=== PATIENT | female | born 1975 | race Caucasian/White ===

== ENCOUNTER 2022-05-11 16:08 | Emergency (ER) | payer OTHER ==
--- NOTE | 2022-05-11 16:30 | EDPHYS ---
Physician Documentation [facility] Name: Carlotta Arellano Age: 46 yrs Sex: Female : 1975 Arrival Date: 05/11/2022 Time: 16:10 Bed 8 Private MD: ED Physician Hugo Mead HPI: 05/11 16:18 This 46 yrs old Female presents to ER via Ambulatory with complaints of Leg Swelling. kb 16:18 The patient presents with cellulitis of the right moss. Description: erythematous, kb swollen. Onset: The symptoms/episode began/occurred 3 month(s) ago. Possible cause(s): unknown. Associated signs and symptoms: Pertinent positives: erythema, swelling. Associated signs and symptoms: Pertinent negatives: fever. Modifying factors: the symptoms are alleviated by nothing, the symptoms are aggravated by nothing. Severity of symptoms: At their worst the symptoms were mild, moderate, in the emergency department the symptoms are unchanged. The patient has not experienced similar symptoms in the past. The patient has not recently seen a physician. Mother states pt has had redness and swelling to right lower extremity since February. States she was recently told it could be cellulitis so she brought her in to get it looked at. States pt is afraid of doctors so it took a while to convince her to come in. . Historical: - Allergies: 16:10 No Known Allergies; aa5 - Home Meds: 16:10 None [Active]; aa5 - PMHx: 16:10 Shingles; Mental Delay; Deaf; aa5 - PSHx: 16:10 Cochlear implant; aa5 - Immunization history:: Adult Immunizations unknown. - Social history:: Smoking status: Patient denies any tobacco usage or history of. ROS: 16:17 Constitutional: Negative for fever, chills, and weight loss. kb 16:17 MS/extremity: Positive for pain, swelling, of the right moss. 16:17 All other systems are negative. Exam: 16:17 Constitutional: This is a well developed, well nourished patient who is awake, alert, kb and in no acute distress. Head/Face: Normocephalic, atraumatic. ENT: Moist Mucous membranes Cardiovascular: Regular rate and rhythm with a normal S1 and S2. No gallops, murmurs, or rubs. No pulse deficits. Respiratory: Respirations even and unlabored. No increased work of breathing. Talking in full sentences MS/ Extremity: Pulses equal, no cyanosis. Neurovascular intact. Full, normal range of motion. Neuro: Awake and alert, GCS 15, oriented to person, place, time, and situation. Moves all extremities. Normal gait. Psych: Awake, alert, with orientation to person, place and time. Behavior, mood, and affect are within normal limits. 16:17 Skin: cellulitis, that is mild, on the right moss, consistent with impetigo, on the right moss. Vital Signs: 16:10 BP 190 / 98; Pulse 98; Resp 18 S; Temp 99.9(A); Pulse Ox 98% on R/A; Weight 127.01 kg aa5 (R); Height 5 ft. 6 in. (167.64 cm) (R); 16:10 Body Mass Index 45.19 (127.01 kg, 167.64 cm) aa5 MDM: 16:14 Patient medically screened. kb 16:16 Data reviewed: vital signs, nurses notes. Data interpreted: Pulse oximetry: on room air kb is 99 %. Interpretation: normal. Counseling: I had a detailed discussion with the patient and/or guardian regarding: the historical points, exam findings, and any diagnostic results supporting the discharge/admit diagnosis, the need for outpatient follow up, a family practitioner, to return to the emergency department if symptoms worsen or persist or if there are any questions or concerns that arise at home. ED course: Discussed testing labs, but mother elects to try outpatient antibiotics first. States she promised pt she wouldn't get a shot and it would be very traumatic for the pt if we tried to get bloodwork. Educated on return precautions. Verbal understanding received. . Administered Medications: No medications were administered Disposition: 18:02 PA/TEST ENGINE EVALUATOR's history reviewed, patient interviewed, and examined. I agree with assessment jr11 and care plan and confirm the diagnosis (es) above. Attestation: The patient's history, exam findings, diagnostics, and a summary of any interventions or procedures was reviewed in detail with Jennifer LICONA. Disposition Summary: 05/11/22 16:29 Discharge Ordered Location: Home kb Condition: Stable kb Diagnosis - Cellulitis of right lower limb kb - Impetigo kb Followup: kb - With: Emergency Department - When: As needed - Reason: Worsening of condition Followup: kb - With: Private Physician - When: 2 - 3 days - Reason: Recheck today's complaints, Continuance of care, Re-evaluation by your physician Discharge Instructions: - Discharge Summary Sheet kb - Cellulitis, Adult, [id number] kb - Impetigo, Adult kb Forms: - Medication Reconciliation Form kb - Thank You Letter kb - Antibiotic Education kb - Prescription Opioid Use kb Prescriptions: - mupirocin 2 % Topical ointment - apply 1 application by TOPICAL route 3 times per day; 1 tube; Refills: 0, kb Product Selection Permitted - Cephalexin 500 mg Oral Capsule - take 1 capsule by ORAL route every 8 hours for 10 days; 30 capsule; Refills: 0, kb Product Selection Permitted Signatures: Jennifer Orosco FNP-C FNP-Ckb Calderon, Audri RN RN aa5 Hugo Mead MD MD jr11
--- NOTE | 2022-05-11 16:30 | ER ---
Nurse's Notes [facility] Name: Carlotta Arellano Age: 46 yrs Sex: Female : 1975 Arrival Date: 05/11/2022 Time: 16:10 Bed 8 Private MD: Diagnosis: Cellulitis of right lower limb;Impetigo Presentation: 05/11 16:10 Chief complaint: Pt's mother reports sandra leg redness since February, worse to Right aa5 leg. Denies fever. 16:10 Coronavirus screen: At this time, the client does not indicate any symptoms associated aa5 with coronavirus-19. Ebola Screen: Patient denies travel to an Ebola-affected area in the 21 days before illness onset. Initial Sepsis Screen: Does the patient meet any 2 criteria? HR > 90 bpm. Does the patient have a suspected source of infection? Yes:. Risk Assessment: Do you want to hurt yourself or someone else? Unable to obtain Other: Pt does not understand, pt is mentally delayed. Onset of symptoms was February 2022. 16:10 Acuity: SACHIN 3 aa5 16:10 Method Of Arrival: Ambulatory aa5 Historical: - Allergies: 16:10 No Known Allergies; aa5 - Home Meds: 16:10 None [Active]; aa5 - PMHx: 16:10 Shingles; Mental Delay; Deaf; aa5 - PSHx: 16:10 Cochlear implant; aa5 - Immunization history:: Adult Immunizations unknown. - Social history:: Smoking status: Patient denies any tobacco usage or history of. Screenin:10 Abuse screen: No signs of abuse noted. Nutritional screening: No deficits noted. aa5 Tuberculosis screening: No symptoms or risk factors identified. Fall Risk No fall in past 12 months (0 pts). Secondary diagnosis (15 points) Mental Delay. No IV (0 pts). Ambulatory Aid- None/Bed Rest/Nurse Assist (0 pts). Gait- Normal/Bed Rest/Wheelchair (0 pts) Mental Status- Overestimates/Forgets Limitations (15 pts.). Total Louie Fall Scale indicates Low Risk Score (25-44 pts). Fall prevention measures have been instituted. Side Rails Up X 2 Placed close to Nursing Station. Assessment: 16:10 General: Appears comfortable, Behavior is calm, cooperative, Fears pain. Pain: aa5 Complains of pain in right leg Unable to use pain scale. Does not appear to understand pain scale. FLACC scale score is 0 out of 10. Neuro: Level of Consciousness is awake, obeys commands. Cardiovascular: Heart tones S1 S2 present Rhythm is regular. Respiratory: Airway is patent Respiratory effort is even, unlabored, Respiratory pattern is regular, symmetrical. GI: Abdomen is obese, Bowel sounds present X 4 quads. Abd is soft X 4 quads. : No signs and/or symptoms were reported regarding the genitourinary system. EENT: Parent/caregiver reports the patient having Pt's mother states "she is completely deaf". Derm: Skin is pink, warm \\T\\ dry. Redness noted to right lower leg that is circumferential with large dry yellowish skin patches noted to right moss and right calf, no drainage noted at this time. No redness noted to left leg at this time. Musculoskeletal: Range of motion: intact in all extremities. 16:35 Neuro: Level of Consciousness is awake, obeys commands. Respiratory: Airway is patent aa5 Respiratory effort is even, unlabored, Respiratory pattern is regular, symmetrical. Derm: Skin is pink, warm \\T\\ dry. Vital Signs: 16:10 BP 190 / 98; Pulse 98; Resp 18 S; Temp 99.9(A); Pulse Ox 98% on R/A; Weight 127.01 kg aa5 (R); Height 5 ft. 6 in. (167.64 cm) (R); 16:10 Body Mass Index 45.19 (127.01 kg, 167.64 cm) aa5 ED Course: 16:10 Patient arrived in ED. bd 16:10 Arm band placed on Patient placed in an exam room, on a stretcher. aa5 16:10 Patient has correct armband on for positive identification. Adult w/ patient. aa5 16:11 Hugo Mead MD is Attending Physician. jr11 16:14 Jennifer Orocso FNP-C is [facility]. kb 16:16 Kirstie Vasquez, RN is Primary Nurse. aa5 16:19 Triage completed. aa5 16:35 No provider procedures requiring assistance completed. Patient did not have IV access aa5 during this emergency room visit. Administered Medications: No medications were administered Medication: 16:35 VIS not applicable for this client. aa5 Outcome: 16:29 Discharge ordered by MD. jackson 16:35 Discharged to home ambulatory, with mother aa5 16:35 Condition: stable 16:35 Discharge instructions given to Pt's mother Instructed on discharge instructions, follow up and referral plans. medication usage, Demonstrated understanding of instructions, follow-up care, medications, Prescriptions given X 2. 16:39 Patient left the ED. ld1 Signatures: Jennifer Orosco, RITCHIE-C JAVASCRIPT DEVELOPER-Joleen Reynolds Audri, RN RN aa5 Lizeth Florian RN RN ld1 Hugo Mead MD MD jr11 Corrections: (The following items were deleted from the chart) 16:31 16:10 General: Appears comfortable, Behavior is calm, cooperative, aa5 aa5
[2022-05-11 16:45] VITALS: BP 190/98; TEMP 99.9; O2SAT 98
== END 2022-05-11 16:39 | disposition home or self-care (01) ==
LOC: ER 16:08
DX: L03.115 Cellulitis of right lower limb (principal); L01.00 Impetigo, unspecified
CPT/HCPCS: 99282

== ENCOUNTER 2024-11-03 13:43 | Emergency (ER) | payer OTHER ==
--- NOTE | 2024-11-03 14:57 | RAD REPORT ---
EXAM: Hand Left 3 View HISTORY: PAIN COMPARISON: None FINDINGS: Bones: No acute fracture identified. 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 Alignment:No significant malalignment. Degenerative changes:None significant. Other: n/a IMPRESSION: No acute osseous abnormality involving the imaged hand.
--- NOTE | 2024-11-03 14:57 | RAD REPORT ---
EXAMINATION: Wrist Left 3 View VIEWS: Three views CLINICAL INDICATION: Female, 49 years old. Pain;Swelling COMPARISON: No prior exam. IMPRESSION: No acute fracture. No malalignment or dislocation. No significant focal degenerative changes. No radiopaque foreign body.
[2024-11-03] MEDS ORDERED: IBUPROFEN 400 MG TAB ONE (15:50)
--- NOTE | 2024-11-03 16:01 | ER ---
Nurse's Notes [facility] Name: Carlotta Arellano Age: 49 yrs Sex: Female : 1975 Arrival Date: 11/03/2024 Time: 13:43 Bed IW1 Private MD: Diagnosis: Other specified sprain of left wrist Presentation: 11/03 14:14 Chief complaint: Parent and/or Guardian states: patient started favoring her left hand me1 sometime this morning. Earlier today patient leaned forward in a chair and hollered out but it is unsure how she injured it. Coronavirus screen: Vaccine status: Patient reports being unvaccinated. Ebola Screen: No symptoms or risks identified at this time. Initial Sepsis Screen: Does the patient meet any 2 criteria? HR > 90 bpm. Does the patient have a suspected source of infection? No. Patient's initial sepsis screen is negative. Risk Assessment: Do you want to hurt yourself or someone else? Patient reports no desire to harm self or others. Onset of symptoms was November 03, 2024 at 10:00. 14:14 Method Of Arrival: Ambulatory [facility] [place] 14:14 Acuity: SACHIN 4 me1 Triage Assessment: 14:16 General: Appears uncomfortable, Behavior is cooperative, appropriate for age, anxious. me1 Pain: Complains of pain in left hand and left wrist Pain does not radiate. Pain currently is 6 out of 10 on a pain scale. Quality of pain is described as aching, Pain began suddenly, Is continuous. EENT: No signs and/or symptoms were reported regarding the EENT system. Neuro: Level of Consciousness is awake, alert, obeys commands, Oriented to person, place, time, situation, Appropriate for age. Cardiovascular: Patient's skin is warm and dry. Respiratory: Airway is patent Respiratory effort is even, unlabored, Respiratory pattern is regular, symmetrical. GI: No signs and/or symptoms were reported involving the gastrointestinal system. : No signs and/or symptoms were reported regarding the genitourinary system. Derm: Skin is intact, is healthy with good turgor, Skin is pink, warm \T\ dry. Musculoskeletal: Reports pain in left hand and left wrist. 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 - Infectious Disease History:: Denies. - Social history:: Smoking status: Patient denies any tobacco usage or history of. Screenin:05 [facility] ED Fall Risk Assessment (Adult) History of falling in the last 3 months, me1 including since admission No falls in past 3 months (0 pts) Confusion or Disorientation No (0 pts) Intoxicated or Sedated No (0 pts) Impaired Gait No (0 pts) Mobility Assist Device Used No (0 pt) Altered Elimination No (0 pt) Score/Fall Risk Level 0 - 2 = Low Risk Maintained a safe environment, Provided non-skid footwear, Hourly rounding (assess needs \T\ fall precautionary measures) done. Abuse screen: Denies threats or abuse. Nutritional screening: No deficits noted. Tuberculosis screening: No symptoms or risk factors identified. Assessment: 16:05 General: See triage assessment. me1 Vital Signs: 14:14 BP 134 / 72; Pulse 102; Resp 20; Temp 98.3; Pulse Ox 97% ; Weight 127.01 kg; Height 5 me1 ft. 6 in. ; Pain 7/10; 14:14 Body Mass Index 45.19 (127.01 kg, 167.64 cm) me1 14:14 Pain Scale: Adult me1 ED Course: 13:44 Patient arrived in ED. ts1 13:48 Ramses Aldana [facility]NP-C [facility]. dr5 13:48 Rito Alexander MD is Attending Physician. dr5 14:17 Triage completed. me1 14:17 Arm band placed on Patient placed in waiting room. me1 14:46 Hand Left 3 View XRAY In Process Unspecified. EDMS 14:46 Wrist Left (3 View) XRAY In Process Unspecified. EDMS 15:59 Judy Johnson, ANIVAL is Primary Nurse. me1 16:05 Patient has correct armband on for positive identification. Provided Education on: POC. me1 Verbalized understanding.. 16:05 No provider procedures requiring assistance completed. Patient did not have IV access me1 during this emergency room visit. Administered Medications: 15:59 Drug: Ibuprofen PO 800 mg PO once Route: PO; me1 16:04 Follow up: Response: No adverse reaction; Pain is decreased me1 Medication: 16:05 VIS not applicable for this client. me1 Outcome: 16:00 Discharge ordered by . dr5 16:05 Discharged to home ambulatory, with family, me1 16:05 Condition: stable 16:05 Discharge instructions given to patient, family, Instructed on discharge instructions, follow up and referral plans. medication usage, Demonstrated understanding of instructions, follow-up care, medications, Prescriptions given X 1, 16:07 Patient left the ED. me1 Signatures: Dispatcher [employer] EDMS Esperanza Correa, PAS PAS ts1 Judy Johnson RN RN me1 Ramses Aldana, MANAGER STRATEGY-C MANAGER STRATEGY-Cdr5 Corrections: (The following items were deleted from the chart) 16:06 16:05 Patient has correct armband on for positive identification. Bed in low position. me1 Call light in reach. Side rails up X2. me1 16:06 16:05 Provided Education on: POC. Verbalized understanding.. me1 me1
--- NOTE | 2024-11-03 16:01 | EDPHYS ---
Physician Documentation [facility] Name: Carlotta Arellano Age: 49 yrs Sex: Female : 1975 Arrival Date: 11/03/2024 Time: 13:43 Bed IW1 Private MD: ED Physician Rito Alexander HPI: 11/03 16:08 This 49 yrs old Female presents to ER via Ambulatory with complaints of Hand dr5 Injury. 16:08 The patient or guardian reports pain, swelling. The complaints affect the left hand dr5 diffusely. Context: resulted from a direct blow, by a solid object. Onset: The symptoms/episode began/occurred acutely. Patient is a 49-year-old female with history of mental delay, hypertension, lymphedema, shingles coming in with left hand and wrist pain after hitting it on a desk at home.. 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 - Infectious Disease History:: Denies. - Social history:: Smoking status: Patient denies any tobacco usage or history of. ROS: 16:10 Constitutional: as per hpi dr5 Exam: 16:10 Constitutional: This is a well developed, well nourished patient who is awake, alert, dr5 and in no acute distress. Head/Face: Normocephalic, atraumatic. Eyes: Pupils equal round and reactive to light, extra-ocular motions intact. Lids and lashes normal. Conjunctiva and sclera are non-icteric and not injected. Cornea within normal limits. Periorbital areas with no swelling, redness, or edema. Neck: Trachea midline, no thyromegaly or masses palpated, and no cervical lymphadenopathy. Supple, full range of motion without nuchal rigidity, or vertebral point tenderness. No Meningismus. Chest/axilla: Normal chest wall appearance and motion. Nontender with no deformity. No lesions are appreciated. Cardiovascular: Regular rate and rhythm with a normal S1 and S2. Normal PMI, no JVD. No pulse deficits. Respiratory: Lungs have equal breath sounds bilaterally, clear to auscultation. No rales, rhonchi or wheezes noted. No increased work of breathing, no retractions or nasal flaring. Back: No spinal tenderness. No costovertebral tenderness. Full range of motion. Skin: Warm, dry with normal turgor. Normal color with no rashes, no lesions, and no evidence of cellulitis. MS/ Extremity: Pulses equal, no cyanosis. Neurovascular intact. Full, normal range of motion. 16:10 Neuro: Exam negative for acute changes, Vital Signs: 14:14 BP 134 / 72; Pulse 102; Resp 20; Temp 98.3; Pulse Ox 97% ; Weight 127.01 kg; Height 5 me1 ft. 6 in. ; Pain 7/10; 14:14 Body Mass Index 45.19 (127.01 kg, 167.64 cm) me1 14:14 Pain Scale: Adult me1 Procedures: 16:10 Splinting: Splint applied to left arm and left wrist using elvis wrap, applied by nurse. dr5 Examined by me, post splint application: neurovascular intact, 2+ distal pulses palpable, brisk capillary refill noted, Patient tolerated well. MDM: 13:48 Medical Screening Exam initiated dr5 16:10 Differential diagnosis: open fracture, closed fracture, contusion, abrasion. Data dr5 reviewed: vital signs, nurses notes, radiologic studies, plain films. I considered the following discharge prescriptions or medication management in the emergency department Medications were administered in the Emergency Department. See MAR. Historians other than the Patient: Parent: Mother. Care significantly affected by the following chronic conditions: Mental delay, shingles, hypertension. Care significantly affected by the following Social Determinants of Health: Poor access to healthcare and/or lack of insurance, Poor access to transportation, Problems related to employment. Counseling: I had a detailed discussion with the patient and/or guardian regarding the historical points, exam findings, and any diagnostic results supporting the discharge/admit diagnosis, the presence of at least one elevated blood pressure reading (>120/80) during this emergency department visit, radiology results, the need for outpatient follow up, for definitive care, a family practitioner, a orthopedic surgeon, to return to the emergency department if symptoms worsen or persist or if there are any questions or concerns that arise at home. Medication response: ED course: Elvis wrap applied in ER. Will have patient continue alternating Tylenol Motrin as needed for pain at home. Offered patient heart splint but mother states that she will likely not wear it at home. X-ray results printed out and handed to patient to take to orthopedics as needed. All questions answered. 11/03 14:23 Order name: Hand Left 3 View XRAY; Complete Time: 15:13 dr5 11/03 14:23 Order name: Wrist Left (3 View) XRAY; Complete Time: 15:13 dr5 Administered Medications: 15:59 Drug: Ibuprofen PO 800 mg PO once Route: PO; me1 16:04 Follow up: Response: No adverse reaction; Pain is decreased me1 Disposition Summary: 11/03/24 16:00 Discharge Ordered Notes: Location: Home dr5 Condition: Stable dr5 Diagnosis - Other specified sprain of left wrist dr5 Followup: dr5 - With: Emergency Department - When: As needed - Reason: Worsening of condition Followup: dr5 - With: Private Physician - When: 1 - 2 days - Reason: Recheck today's complaints, Continuance of care, Re-evaluation by your physician Discharge Instructions: - Discharge Summary Sheet dr5 - Wrist Pain, Adult dr5 Forms: - Medication Reconciliation Form dr5 - Patient Portal Instructions dr5 - Leadership Thank You Letter dr5 Prescriptions: - Ibuprofen 800 mg Oral Tablet - take 1 tablet ORAL route every 12 hours As needed take with food; 20 tablet; dr5 Refills: 0, Product Selection Permitted Addendum: 11/05/2024 12:35 Co-signature as Attending Physician, Rito Alexander MD I agree with the assessment and c jimenez plan of care. Signatures: Dispatcher [employer] Rito Joyner MD MD cha Eddleman, Michelle, RN RN me1 Ramses Aldana, PERFECT BIND MACHINE OPERATOR-C PERFECT BIND MACHINE OPERATOR-Cdr5
[2024-11-03 16:36] VITALS: BP 134/72; TEMP 98.3; O2SAT 97
== END 2024-11-03 16:07 | disposition home or self-care (01) ==
LOC: ER 13:43
DX: S63.592A Other specified sprain of left wrist, initial encounter (principal)
CPT/HCPCS: 99283